=== PATIENT | male | born 1990 | race Two or more races ===

== ENCOUNTER 2024-04-26 03:55 | Emergency (ER) | payer OTHER ==
[~2024-04-26] VITALS: Ht 165.1 cm; Wt 121.0 kg
[2024-04-26 04:05] VITALS: BP 146/97; PULSE 96; RESP 16; TEMP 97.7; O2SAT 97
[2024-04-26] MEDS: IBUPROFEN 800 MG TAB PO ONE (04:40)
[2024-04-26] MEDS: TETANUS-DIPTH-ACEL PERTUSSIS 0.5ML SYR Tdap IM ONE (04:51)
== END 2024-04-26 04:57 | disposition home or self-care (01) ==
LOC: ER 03:55
DX: S01.81XA Laceration without foreign body of other part of head, initial encounter (principal); Z88.0 Allergy status to penicillin; W22.8XXA Striking against or struck by other objects, initial encounter; Y93.89 Activity, other specified; Y92.69 Other specified industrial and construction area as the place of occurrence of the external cause; Y99.8 Other external cause status
CPT/HCPCS: 12011; 90471; 90715